=== PATIENT | female | born 1975 | race Hispanic/Latino ===

== ENCOUNTER 2025-05-18 18:00 | Emergency (ER) | payer SELFPAY ==
[~2025-05-18] VITALS: Ht 165.1 cm; Wt 104.6 kg
[2025-05-18 18:35] VITALS: PULSE 82; RESP 18; TEMP 98.5; O2SAT 98
[2025-05-18] MEDS: HYDROCODONE/APAP 5MG-325MG TAB PO ONE (19:19)
[2025-05-18] MEDS: TETANUS/DIPHTHERIA TOX ADULT 0.5 ML SYR IM ONE (19:19)
== END 2025-05-18 19:49 | disposition other institution (70) ==
LOC: FSED 18:37
DX: T23.241A Burn of second degree of multiple right fingers (nail), including thumb, initial encounter (principal); X02.8XXA Other exposure to controlled fire in building or structure, initial encounter; Y93.G3 Activity, cooking and baking; Y92.89 Other specified places as the place of occurrence of the external cause; E11.9 Type 2 diabetes mellitus without complications
CPT/HCPCS: 90471; 90714; 96372; 99283